=== PATIENT | female | born 1955 | race Caucasian/White ===

== ENCOUNTER 2017-07-09 14:46 | Emergency (ER) | payer BC, OTHER ==
--- NOTE | 2017-07-09 16:23 | UC ---
Throat Pain/Nasal Alek HPI - HPI Summary HPI Summary: 62 y/o female presents to the urgent care c/o pain in left ear and left cheek and left upper toothache worsening over past 2 days. Pain is 4/10 specially with chewing. Symptoms started about 1 week ago. This morning she was chewing a toasted bread and her pain increase. Pt has a 2 broken molars on the left upper side. Pt denies fever, nasal congestion, SOB, chest pain, N/V/D, abdominal pain. Last time she saw a Dentist about 3 years ago. - History of Current Complaint Stated Complaint: SINUS Time Seen by Provider: 07/09/17 16:22 Hx Obtained From: Patient ?: No Onset/Duration: Gradual Onset, Lasting Weeks - 1 week, Worse Since - 2 days Severity: Moderate Pain Intensity: 4 Pain Scale Used: 0-10 Numeric Cough: None Associated Signs & Symptoms: Positive: Sinus Discomfort, Other - toochache, left ear pain. Negative: Nasal Discharge, Fever - Epiglottits Risk Factors Epiglottis Risk Factors: Negative - Allergies/Home Medications Allergies/Adverse Reactions: Allergies Allergy/AdvReac Type Severity Reaction Status Date / Time Codeine Allergy Severe SEVERE Verified 07/09/17 16:30 DIZZINESS Tetanus Toxoids Allergy Severe Anaphylatic Verified 07/09/17 16:30 Shock PMH/Surg Hx/FS Hx/Imm Hx Previously Healthy: Yes - Pt denies PMHX - Surgical History Surgical History: Yes Surgery Procedure, Year, and Place: C SECTION. GALL BLADDER REMOVAL - Family History Known Family History: Positive: None - Pt denies FMHX - Social History Occupation: Employed Full-time Lives: With Family Alcohol Use: None Substance Use Type: None Smoking Status (MU): Light Every Day Tobacco Smoker Type: Cigarettes Amount Used/How Often: 4 CIGS A DAY Have You Smoked in the Last Year: Yes Household Exposure Type: Cigarettes - Immunization History Most Recent Tetanus Shot: ANAPHLAXSIS TO TETANUS Review of Systems Constitutional: Negative Skin: Negative Eyes: Negative ENT: Dental Pain, Ear Ache - left ear, Sinus Pain/Tenderness - left side Respiratory: Negative Cardiovascular: Negative Gastrointestinal: Negative Genitourinary: Negative Motor: Negative Neurovascular: Negative Musculoskeletal: Negative Neurological: Negative Psychological: Negative Is Patient Immunocompromised?: No All Other Systems Reviewed And Are Negative: Yes Physical Exam Triage Information Reviewed: Yes - Additional Comments Vital Signs Reviewed: Yes General: well developed. well nourished male sitting in the examining table w/o any apparent distress Eyes: Positive: Conjunctiva Clear - PERRLA, EOMI, fundi grossly normal ENT: Positive: Normal ENT inspection, Hearing grossly normal, Pharyngeal erythema, TMs normal, Uvula midline. Negative: Tonsillar swelling, Tonsillar exudate, Trismus Dental: Positive: Percussion Tenderness @ - molar 16, Gross Decay/Caries @ - molar 16,14, Abscess @ - molar 16, left side anterior Cervical Lymphadenopathy , No trismus, No TMJ tenderness. Neck: Positive: Supple, Nontender Respiratory: Positive: Chest non-tender, Lungs clear, Normal breath sounds, No respiratory distress Cardiovascular: Positive: RRR, No Murmur, Pulses Normal, Brisk Capillary Refill Abdomen Description: Positive: Nontender, No Organomegaly, Soft. Negative: CVA Tenderness (R), CVA Tenderness (L) Bowel Sounds: Positive: Present Musculoskeletal: Positive: Strength Intact, ROM Intact, No Edema Neurological Exam: Normal Psychological Exam: Normal Skin Exam: Normal Throat Pain/Nasal Course/Dx - Course Course Of Treatment: 62 y/o female presents to the urgent care c/o pain in left ear and left cheek and left upper toothache worsening over past 2 days. Pain is 4/10 specially with chewing. Symptoms started about 1 week ago. This morning she was chewing a toasted bread and her pain increase. Pt has a 2 broken molars on the left upper side. Pt denies fever, nasal congestion, SOB, chest pain, N/V/D, abdominal pain. Last time she saw a Dentist about 3 years ago.Hx obtained. Pt with a mild Dental abscess at molar #16 on the left upper jaw and gross decay on molar #14, 16 on examination. Pt with dental abscess on examination. Pt given viscous Lidocaine at the clinic to alleviate symptoms. Pt Rx Amoxicillin PO and Ibuprofen PO for pain. Pt strongly advised to f/u with Dentist as soon as possible further evaluation and treatment. Pt understood and agreed with plan of care. Left the clinic ambulating. - Differential Dx/Diagnosis Differential Diagnosis/HQI/PQRI: Otitis Media, Peritonsillar Abscess, Pharyngitis, Sinusitis, Tonsillitis, URI, Other - dental abscess Provider Diagnoses: 1- Dental abscess at molar #16. 2- dental caries at molar # 14 and 16 Discharge - Discharge Plan Condition: Stable Disposition: HOME Prescriptions: Amoxicillin PO (*) [Amoxicillin 875 MG (*)] 875 mg PO BID #20 tab Ibuprofen TAB* [Motrin TAB* 800 MG] 800 mg PO Q6H PRN #20 tab PRN Reason: Pain Patient Education Materials: Dental Abscess (ED) Referrals: [facility] [place] [facility]FERR[facility] [Outside] - 2 Days Additional Instructions: 1-Please take full course of antibiotic to avoid resistance. 2- Take Ibuprofen PO q6-8hrs prn as instructed after meals to alleviate pain and swelling. 3- F/u with your Dentist or Dental List provided as soon as possible for further treatment. 4- If symptoms do not improve or worsen please return to the urgent care or f/u with your PCP for further evaluation and treatment
[2017-07-09 16:30] VITALS: BP 132/81
== END 2017-07-09 17:01 | disposition home or self-care (01) ==
LOC: UCCORT 14:46
DX: K04.7 Periapical abscess without sinus (principal); K02.9 Dental caries, unspecified; Z88.5 Allergy status to narcotic agent; Z88.7 Allergy status to serum and vaccine
CPT/HCPCS: 99202; G0463

== ENCOUNTER 2019-01-05 11:08 | Emergency (ER) | payer BC ==
[2019-01-05 11:55] VITALS: BP 179/69
--- NOTE | 2019-01-05 12:17 | UC ---
Skin Complaint HPI - HPI Summary HPI Summary: 63-year-old woman comes in with a chief complaint of lower lip laceration occurred 2-3 days ago when she tripped and fell and put her teeth her lower lip. She's noticed some increased swelling and she had some clear fluid drainage she wonders if it's infected. No fevers no chills. No complaint of other facial pain or broken teeth. - History of Current Complaint Chief Complaint: UCSkin Time Seen by Provider: 01/05/19 12:08 Stated Complaint: LIP CONCERN Hx Last Menstrual Period: n/a Pain Intensity: 0 - Allergy/Home Medications Allergies/Adverse Reactions: Allergies Allergy/AdvReac Type Severity Reaction Status Date / Time Tetanus Vaccines and Toxoid Allergy Anaphylatic Verified 01/05/19 11:59 Shock codeine AdvReac Dizziness Verified 01/05/19 12:00 Home Medications: Home Medications Naproxen Sodium [Aleve] 440 mg PO DAILY 01/05/19 [History Confirmed 01/05/19] PMH/Surg Hx/FS Hx/Imm Hx Previously Healthy: Yes - Surgical History Surgical History: Yes Surgery Procedure, Year, and Place: C SECTION. GALL BLADDER REMOVAL - Family History Known Family History: Positive: None - Pt denies FMHX - Social History Alcohol Use: None Substance Use Type: None Smoking Status (MU): Light Every Day Tobacco Smoker Type: Cigarettes Amount Used/How Often: 4 CIGS A DAY Length of Time of Smoking/Using Tobacco: since age 11 years Have You Smoked in the Last Year: Yes Household Exposure Type: Cigarettes - Immunization History Most Recent Tetanus Shot: ANAPHLAXSIS TO TETANUS Review of Systems All Other Systems Reviewed And Are Negative: Yes Constitutional: Positive: Negative Skin: Positive: Other - SEE HPI Eyes: Positive: Negative ENT: Positive: Negative Respiratory: Positive: Negative Cardiovascular: Positive: Negative Gastrointestinal: Positive: Negative Motor: Positive: Negative Neurovascular: Positive: Negative Musculoskeletal: Positive: Negative Neurological: Positive: Negative Psychological: Positive: Negative Is Patient Immunocompromised?: No Physical Exam Triage Information Reviewed: Yes Appearance: Well-Appearing, No Pain Distress, Well-Nourished Vital Signs: Initial Vital Signs Temp 98.8 F 01/05/19 11:45 Pulse 75 01/05/19 11:45 Resp 16 01/05/19 11:45 BP 179/69 01/05/19 11:45 Pulse Ox 100 01/05/19 11:45 Vital Signs Reviewed: Yes Eye Exam: Normal Eyes: Positive: Conjunctiva Clear ENT: Positive: Pharynx normal Neck: Positive: Supple Respiratory: Positive: No respiratory distress Musculoskeletal: Positive: Strength Intact, ROM Intact Neurological: Positive: Alert, Muscle Tone Normal Psychological: Positive: Age Appropriate Behavior Skin: Positive: Other - On the lower lip on the inside patient has a 1 cm healing laceration. The outside of the lower lip there are 2 healing 5 mm lacerations with scabs. No erythema no drainage. Course/Dx - Course Course Of Treatment: At this time is not obvious that there is infection however with the patient's reported swelling and potential for infection we will treat with Augmentin. Patient state reevaluated if worse or any questions or concerns. - Diagnoses Provider Diagnosis: Lip laceration Discharge - Sign-Out/Discharge Documenting (check all that apply): Patient Departure All imaging exams completed and their final reports reviewed: No Studies - Discharge Plan Condition: Stable Disposition: HOME Prescriptions: Amoxicillin/Clavulanate TAB* [Augmentin TAB 875*] 875 mg PO BID #20 tab Patient Education Materials: Facial Laceration (ED) Referrals: [facility] [place] [facility] RE[facility]ERR[facility] [Outside] Additional Instructions: FOLLOW UP WITH YOUR DOCTOR IF NOT COMPLETELY IMPROVED. GET REEVALUATED SOONER IF WORSE OR ANY QUESTIONS OR CONCERNS. - Billing Disposition and Condition Condition: STABLE Disposition: Home
== END 2019-01-05 12:22 | disposition home or self-care (01) ==
LOC: UCCORT 11:08
DX: S01.511A Laceration without foreign body of lip, initial encounter (principal); W01.0XXA Fall on same level from slipping, tripping and stumbling without subsequent striking against object, initial encounter; Y92.9 Unspecified place or not applicable; F17.210 Nicotine dependence, cigarettes, uncomplicated
CPT/HCPCS: 99212; G0463